=== PATIENT | female | born 1975 | race Two or more races ===

== ENCOUNTER 2017-06-28 14:54 | Emergency (ER) | payer MEDICAID ==
[~2017-06-28] VITALS: Ht 160 cm; Wt 63.0 kg
[2017-06-28 16:06] VITALS: BP 150/88
== END 2017-06-28 16:38 | disposition home or self-care (01) ==
LOC: ER 14:54
DX: L08.9 Local infection of the skin and subcutaneous tissue, unspecified (principal); Z48.01 Encounter for change or removal of surgical wound dressing; Z85.828 Personal history of other malignant neoplasm of skin